=== PATIENT | female | born 1970 | race Caucasian/White ===

== ENCOUNTER 2023-02-19 07:08 | Inpatient (IN) | payer OTHER, SELFPAY ==
[2023-02-19] VITALS (16 sets, daily range): BP systolic 109–156; BP diastolic 62–88; PULSE 63–92; RESP 12–25; TEMP 36.4–37.4; O2SAT 93–100; BMI 33.9
--- NOTE | ~2023-02-19 | US_ITS ---
EXAMINATION: US abdomen limited DATE: 02/22/2023 13:31 INDICATION: Right upper quadrant pain TECHNIQUE: Multiple grayscale and Doppler ultrasound images of the abdomen were obtained. COMPARISON: CT from yesterday FINDINGS: Bowel gas obscures visualization of the pancreas. The visualized portions of the pancreas a re unremarkable. The liver is normal with normal echogenicity and echotexture. No surface nodularity. Normal hepatopetal flow in the main portal vein. The gallbladder is normal with no abnormal wall thi ckening, pericholecystic fluid or stones. The normal common bile duct measures 3 mm. There was no son ographic Ayala sign. IMPRESSION: 1. No sonographic correlate for the patient's symptoms. Reviewed, dictated and finalized at location A.
--- NOTE | ~2023-02-19 | CT_ITS ---
EXAMINATION: CT chest abdomen pelvis wo con DATE: 02/21/2023 16:33 INDICATION: Right flank pain. Right upper quadrant abdominal pain. Pleural effusion. TECHNIQUE: Computed tomography (CT) of the chest, abdomen, and pelvis was performed without intraveno us contrast. Automated exposure control and iterative reconstruction technique were employed. The dos e-length product was 1469.09 mGy-cm. COMPARISON: Chest CT 02/19/2023 FINDINGS: CHEST CT: There are small right and trace left pleural effusions. There is moderate atelectasis in right lung w ith an inferior predominance. There is mild atelectasis in left lung. Cardiomegaly is noted. No peric ardial effusion. There is mild thoracic spondylosis. ABDOMEN/PELVIS CT: There is a moderate-sized sliding hiatal hernia. The liver and spleen are normal. The gallbladder is distended. The pancreas, adrenal glands, and kidneys are normal. There is no urolithiasis. There are no dilated loops of bowel. The appendix is not visualized. There is acute hemoperitoneum in the expec anika area of right ovary and in the inferior peritoneum. There are no pathologically enlarged lymph no mile. There is mild lumbar spondylosis. IMPRESSION: 1. Acute hemoperitoneum in the expected area of right ovary and in the inferior peritoneum. 2. Small right and trace left pleural effusions. 3. Moderate-sized sliding hiatal hernia. 4. Gallbladder distention, which may be secondary to fasting. Consider abdomen ultrasound if there is clinical concern for acute cholecystitis. Reviewed, dictated and finalized at location E.
--- NOTE | ~2023-02-19 | CT_ITS ---
EXAMINATION: CTA chest PE protocol DATE: 02/19/2023 08:09 CDT INDICATION: Right-sided chest pain TECHNIQUE: Computed tomographic angiography (CTA) of the chest was performed with 100 mL Omnipaque-35 0 intravenous contrast. The dose-length product was 559.12 mGy-cm. Maximum intensity projection 3D-re constructions of the aorta and other arteries were constructed by the technologist on a separate work station. Automated exposure control and iterative reconstruction technique were employed. COMPARISON: None. FINDINGS: Small right pleural effusion. Study is technically adequate. There are filling defects in l eft lower lobe segmental and subsegmental pulmonary arteries, consistent with pulmonary embolism. No thoracic lymphadenopathy. Large hiatal hernia. There are bandlike areas of consolidation in the lower lobes and right upper lobe which may represent atelectasis and/or pneumonia. No acute osseous abnorm ality. IMPRESSION: 1. Pulmonary embolism of left lower lobe segmental and subsegmental pulmonary arteries, small thrombu s burden. 2: Small right pleural effusion. 3: Bandlike consolidation right upper and bilateral lower lobes which may represent atelectasis and/ or pneumonia. Reviewed, dictated and finalized at location D. IMPRESSION: 1. Pulmonary embolism of left lower lobe segmental and subsegmental pulmonary a rteries, small thrombus burden. 2: Small right pleural effusion. 3: Bandlike consolidation right upper and bilateral lower lobes which may repr esent atelectasis and/or pneumonia.
--- NOTE | ~2023-02-19 | US_ITS ---
EXAMINATION: US venous doppler [facility] DATE: 02/19/2023 15:13 INDICATION: Chest pain. Acute pulmonary emboli. TECHNIQUE: Grayscale ultrasound images without and with compression and Doppler ultrasound images of the bilateral lower extremity veins were obtained. COMPARISON: None. FINDINGS: The visualized portions of right common femoral vein, profunda (deep) femoral vein, femoral vein, pop liteal vein, peroneal veins, posterior tibial veins, and greater saphenous vein outflow are patent. The visualized portions of left common femoral vein, profunda femoral vein, femoral vein, popliteal v ein, peroneal veins, posterior tibial veins, and greater saphenous vein outflow are patent. IMPRESSION: 1. No deep venous thrombosis. Reviewed, dictated and finalized at location A.
--- NOTE | ~2023-02-19 | XR_ITS ---
EXAMINATION: XR chest 1V Exam Date/Time: 02/21/2023 16:25 CDT HISTORY: right flank pain, recent PE WITH SHORTNESS OF BREATH Comparison: CT chest abdomen and pelvis, same date. RESULT: Lines, tubes, and devices: None. Lungs and pleura: Patchy bilateral mid and lower lung opacities. Moderate right lateral costophrenic angle blunting. Cardiomediastinal silhouette: Large hiatal hernia, otherwise unremarkable. Other: No acute osseous or upper abdominal finding. IMPRESSION: Bilateral mid and lower lung subsegmental atelectasis/consolidation. Moderate right pleural effusion. Reviewed, dictated and finalized at location K. IMPRESSION: Bilateral mid and lower lung subsegmental atelectasis/consolidation. Moderate r ight pleural effusion.
--- NOTE | 2023-02-19 07:19 | ECG_ITS ---
Measurements Intervals [place] Rate: 98 P: 69 MO: 165 QRS: -1 QRSD: 81 T: 26 QT: 345 QTc: 441 Interpretive Statements SINUS RHYTHM BORDERLINE T WAVE ABNORMALITY- ANT/INF LEADS BASELINE ARTIFACT- I, II, III, AVR, AVL, AVF, V1-V6 BORDERLINE ECG NO PREVIOUS ECG AVAILABLE FOR COMPARISON Electronically Signed On 02-19-2023 7:45:28 CDT by Zhang Jacobo D.O.
[2023-02-19 07:34] LABS: Basophils Percent Auto 0.3 % (0.2-1.2); Eosinophils Absolute Auto 0.1 K/mm3 (0-0.3); Eosinophils Percent Auto 1.5 % (0-4.4); Hematocrit 32.1 % (37.0-47.0); Immature Granulocyte Absolute 0.04 K/mm3 (0.00-0.031); Immature Granulocyte Percent A 0.6 % (0-0.5); Lymphocytes Percent Auto 22.3 % (18.3-44.2); Mean Corpuscular HGB Conc 31.2 g/dl (32-36); Mean Corpuscular Hemoglobin 29.9 pg (26-34); Mean Corpuscular Volume 96.1 fl (80-100); Mean Platelet Volume 9.4 fl (7.4-10.4); Monocytes Absolute Auto 0.5 K/mm3 (0.1-0.6); Monocytes Percent Auto 7.2 % (2.6-8.5); Neutrophils Absolute Auto 4.9 K/mm3 (1.3-6.7); Neutrophils Percent Auto 68.1 % (45.5-73.1); Platelet Count Result 410 k/mm3 (150-375); Red Blood Count 3.34 M/mm3 (4.2-5.4); Red Cell Distribution Width 13.8 % (11.5-14.5); White Blood Count 7.2 K/mm3 (4.5-10.0)
[2023-02-19] MEDS: ASPIRIN 81 MG CHEWABLE TABLET 324 MG PO (07:37)
[2023-02-19 07:45] LABS: Alanine Aminotransferase 25 U/L (6-35); Albumin Level 4.6 g/dL (3.5-5.1); Alkaline Phosphatase 74 U/L (38-126); Anion Gap 5 mmol/L (8-16); Aspartate Amino Transferase 51 U/L (14-36); Bilirubin,Total 1.2 mg/dL (0.2-1.3); Blood Urea Nitrogen 13 mg/dL (7-17); Calcium 8.9 mg/dL (8.4-10.2); Carbon Dioxide 30 mmol/L (22-30); Chloride 101 mmol/L (98-107); Estimated CRCL calculation 106 ml/min; Estimated Glomerular Filt Rate > 60; Glucose 100 mg/dL (65-110); Lipase 134 U/L (23-300); Potassium 4.1 mmol/L (3.4-5.0); Sodium 136 mmol/L (137-145)
[2023-02-19] MEDS: MORPHINE SULFATE (*CRX) 4 MG/ML INJ IV PUSH (07:45)
[2023-02-19] MEDS: SODIUM CHLORIDE 0.9% IV 1,000 ML 999 ML IV CONT (07:46)
--- NOTE | 2023-02-19 07:47 | ED.CHESTPAIN ---
HPI - Chest Pain General Chief Complaint: Chest Pain Stated Complaint: Abd pain post hysterectomy Time Seen by Provider: 02/19/23 07:13 History of Present Illness HPI narrative: Patient is a 52-year-old female who presents ER with right-sided chest pain. Sharp. Worse with deep breath and physical movements. Also worse with palpation. Sudden onset at 6 AM. Patient is 1 week status post laparoscopic transvaginal hysterectomy. It was complicated by some internal bleeding where she was found to have fluid collection on CT scan, and she also had some pads filll up in the PACU. She received 2 units of blood.. It was performed in the [facility] system. Patient has no runny nose or sore throat or productive cough. Patient did have dry cough 2 days ago. No fevers or chills or sweats. No urinary symptoms. No history of PE. No hemoptysis. Related Data Home Medications Medication Instructions Recorded Confirmed acetaminophen 500 mg tablet 500 mg PO PRN PRN Pain (Scale 02/19/23 02/19/23 Score 1-3) cyclobenzaprine 10 mg tablet 10 mg PRN PRN Muscle Spasm 02/19/23 02/19/23 escitalopram oxalate 20 mg tablet 40 mg HS 02/19/23 02/19/23 oxycodone 5 mg tablet 5 mg PRN PRN Pain (Scale Score 4-6) 02/19/23 02/19/23 rizatriptan 10 mg disintegrating 10 mg PO PRN 02/19/23 02/19/23 tablet sennosides 8.6 mg tablet (senna) 8.6 mg BID 02/19/23 02/19/23 Allergies Allergy/AdvReac Type Severity Reaction Status Date / Time acetaminophen [From Vicodin] Allergy Unknown Verified 02/19/23 07:34 hydrocodone [From Vicodin] Allergy Unknown Verified 02/19/23 07:34 penicillin G Allergy Unknown Verified 02/19/23 07:34 topiramate [From Topamax] Allergy Unknown Verified 02/19/23 07:34 Review of Systems Review of Systems: All systems reviewed & are unremarkable except as noted in HPI and below Constitutional: Constitutional: Denies chills, Denies fatigue and Denies fever(s) ENT: Denies nasal congestion and Denies sore throat Cardiovascular: Cardiovascular: Reports chest pain, Denies rapid heart rate and Denies radiating jaw, neck or arm pain Respiratory: Respiratory: Denies cough, Denies dyspnea and Denies wheezing Gastrointestinal: Gastrointestinal: Denies abdominal pain, Denies diarrhea, Denies nausea and Denies vomiting Genitourinary: Genitourinary: Denies nocturia and Denies dysuria PMFSH Past Medical History Medical History (Updated 02/19/23 @ 14:00 by Filomena Restrepo PA-C) Depression Migraine headache Surgical History Surgical History (Updated 02/19/23 @ 14:00 by Filomena Restrepo PA-C) History of laparoscopy-assisted vaginal hysterectomy (02/13/23) Family History Family History Mother Cervical cancer Uterine cancer Grandparent Dementia Diabetes mellitus Father MVA (motor vehicle accident) Social History Social History (Updated 02/19/23 @ 13:57 by Filomena Restrepo PA-C) Social History: Surrogate medical decision maker: Addy Styles, spouse. Code status: Full code. Smoking status: Former smoker Substance use: current Substance use type: marijuana Lack of Transportation: No Lack of Food: Never True Current Housing: I Have Housing Concerned About Future Housing: No Difficulty Paying Gas/Electric Bills: No Difficulty Paying for Meds: No Currently Unemployed: No Education: Associate Degree Difficulty w/ Childcare or Family Care: No Additional living arrangements comments: Lives with spouse in [place]. Additional occupation/education comments: Disabled. Spiritual care concerns: No Exam Narrative: GENERAL: Uncomfortable-appearing, well-nourished, and in mild distress. HEAD: Normocephalic, atraumatic. ENT: Mucous membranes moist. CHEST: Clear to auscultation. No respiratory distress. Tender palpation right chest wall anterior inferior to the breast. HEART: Regular rate and rhythm. Normal peripheral pulses.
[2023-02-19 07:49] LABS: INR 0.9; Partial Thromboplastin Time 23.1 SECONDS (22.3-36.8); Prothrombin Time 12.7 Seconds (11.1-14.7)
[2023-02-19 07:56] LABS: Troponin I 0.025 ng/mL (0.000-0.034)
[2023-02-19 07:57] LABS: Estimated CRCL calculation 106 ml/min; Estimated Glomerular Filt Rate > 60
[2023-02-19] MEDS: HEPARIN SODIUM 5,000 UNITS/ML VIAL 6500 UNITS IV PUSH (09:22)
[2023-02-19] MEDS: HEPARIN SOD/D5W 100 UNITS/ML 25,000 UNITS/250 ML BAG 15 UNITS IV CONT (09:23)
--- NOTE | 2023-02-19 10:00 | ADMGEN ---
This patient, Micah Styles, was admitted to IMU Room 205-02 at 0944. Patient/family oriented to hospital policies and general routines including ID bracelet, bed and alarms, visiting hours, pain management, procedures, bathroom and other care routines, personal items, smoking policy, room service/diet, and visiting hours. Information on how to activate the Rapid Response Team has been discussed. Patient/Family are encouraged to report perceived risks to care and to ask questions if they do not understand what they are told or what they should do.
[2023-02-19 10:57] LABS: Troponin I 0.021 ng/mL (0.000-0.034)
--- NOTE | 2023-02-19 11:01 | PCCCNOTE ---
Addendum entered by Cynthia Branch RN 02/19/23 19:00: Called to after hours # [phone] [place] [phone], per rep there are no medical beds available. Original Note: Admitted to floor for Pulmonary Embolism, Spoke with ER hazard mitigation officer [facility] Called to [facility]rand at [phone], no medical bed available. Advised to call back after 5pm to the AOD at [phone] [place] [phone] to see if bed is available as they have not started their discharges yet.
[2023-02-19 13:29] LABS: Troponin I 0.016 ng/mL (0.000-0.034)
--- NOTE | 2023-02-19 13:44 | PM.IMHP ---
H&P: HPI History of Present Illness Date/Time: 02/19/23 13:00 Chief Complaint: Chest pain. Narrative: This is a 52-year-old female who presented to the ED from home for evaluation of chest pain. The patient provides the following history. She is 1 week status post laparoscopic vaginal hysterectomy performed at [facility]. While in PACU she had heavy vaginal bleeding and she reportedly soaked 3 pads in less than an hour. Per patient report, she began to have excruciating abdominal pain shortly thereafter and her blood pressure dropped. She was transfused 2 units of blood and was sent for a CT scan which reportedly showed a small amount of intra-abdominal bleeding which the surgeon did not feel was significant. She was monitored in the hospital for 2 days and was discharged this past Thursday. She has been doing well and she has not required significant amounts of pain medications. She has not had any vaginal bleeding either. In any event, yesterday evening she developed nondescript midback pain in this morning she was wakened from sleep at about 06:00 with sharp, stabbing pain on the right side of the chest and the right flank worse with movement and deep inspiration. She was also feeling a bit lightheaded short of breath with that. Chest CTA showed pulmonary embolism of the left lower lobe segmental and subsegmental pulmonary arteries, small right pleural effusion, and band like consolidation in the right upper and bilateral lower lobe which may represent atelectasis and/or pneumonia. She was started on a heparin drip and she has been admitted to the IMU in this setting. She has mild conversational dyspnea but does not appear to be in respiratory distress. She has not had fever, chills, or sweats. She denies cough. No nausea or vomiting. She has not noticed any swelling in her legs and denies calf pain. No personal or family history of venous thromboembolism. She has not had any recent travel. She is not on hormones. No history of malignancy. Review of Systems Review of Systems: Twelve systems were reviewed and are negative except for as per HPI. [facility]LY [facility] Past Medical History Medical History Depression Migraine headache Surgical History Surgical History (Updated 02/19/23 @ 21:51 by Filomena Restrepo PA-C) History of vaginal hysterectomy (02/13/23) Family History Family History Mother Cervical cancer Uterine cancer Grandparent Dementia Diabetes mellitus Father MVA (motor vehicle accident) Social History Social History Social History: Surrogate medical decision maker: Addy Styles, spouse. Code status: Full code. Smoking status: Former smoker Substance use: current Substance use type: marijuana Lack of Transportation: No Lack of Food: Never True Current Housing: I Have Housing Concerned About Future Housing: No Difficulty Paying Gas/Electric Bills: No Difficulty Paying for Meds: No Currently Unemployed: No Education: Associate Degree Difficulty w/ Childcare or Family Care: No Additional living arrangements comments: Lives with spouse in [place]. Additional occupation/education comments: Disabled. Spiritual care concerns: No Meds Home Medications and Allergies Home Medications Medication Instructions Recorded Confirmed Type acetaminophen 500 mg tablet 500 mg PO PRN PRN Pain (Scale 02/19/23 02/19/23 History Score 1-3) cyclobenzaprine 10 mg tablet 10 mg PRN PRN Muscle Spasm 02/19/23 02/19/23 History escitalopram oxalate 20 mg tablet 40 mg HS 02/19/23 02/19/23 History oxycodone 5 mg tablet 5 mg PRN PRN Pain (Scale Score 4-6) 02/19/23 02/19/23 History rizatriptan 10 mg disintegrating 10 mg PO PRN 02/19/23 02/19/23 History tablet sennosides 8.6 mg tablet (senna) 8.6 mg BID 02/19/23 02/19/23 History Azael
[2023-02-19] MEDS: MORPHINE SULFATE (*CRX) 4 MG/ML INJ 2 MG IV PUSH (13:49)
[2023-02-19 15:10] LABS: Hemoglobin 8.8 g/dL (12.0-15.0)
[2023-02-19 15:31] LABS: NT Pro B Type Natriuretic Pept 152 pg/mL (19.9-100)
[2023-02-19 16:21] LABS: Partial Thromboplastin Time 128.9 SECONDS (22.3-36.8)
[2023-02-19] MEDS: SENNOSIDES 8.6 MG TABLET BY MOUTH (16:28)
[2023-02-19] MEDS: oxyCODONE HCL (*CRX) 5 MG TAB IR BY MOUTH ×2 (16:28→19:04)
[2023-02-19] MEDS: ESCITALOPRAM OXALATE 10 MG TABLET 40 MG BY MOUTH (20:41)
[2023-02-19] MEDS: HYDROmorphone HCL INJ (*CRX) 1 MG/ML SYR 0.5 MG IV PUSH (20:42)
[2023-02-19 20:46] LABS: Hematocrit 27.8 % (37.0-47.0); Hemoglobin 8.9 g/dL (12.0-15.0)
[2023-02-20] VITALS (12 sets, daily range): BP systolic 93–122; BP diastolic 56–76; PULSE 65–83; RESP 14–20; TEMP 36.2–36.4; O2SAT 95–100
[2023-02-20 00:03] LABS: Partial Thromboplastin Time 66.7 SECONDS (22.3-36.8)
[2023-02-20] MEDS: HEPARIN SODIUM 5,000 UNITS/ML VIAL 3500 UNITS IV PUSH (00:42)
[2023-02-20] MEDS: HYDROmorphone HCL INJ (*CRX) 1 MG/ML SYR 0.5 MG IV PUSH ×5 (00:46→21:21)
[2023-02-20 01:57] LABS: Hematocrit 28.2 % (37.0-47.0); Hemoglobin 8.9 g/dL (12.0-15.0)
[2023-02-20] MEDS: HEPARIN SOD/D5W 100 UNITS/ML 25,000 UNITS/250 ML BAG 15 UNITS IV CONT (02:02)
[2023-02-20] MEDS: oxyCODONE HCL (*CRX) 5 MG TAB IR BY MOUTH ×3 (04:35→18:34)
[2023-02-20 06:45] LABS: Basophils Percent Auto 0.6 % (0.2-1.2); Eosinophils Absolute Auto 0.1 K/mm3 (0-0.3); Hematocrit 27.5 % (37.0-47.0); Hemoglobin 8.6 g/dL (12.0-15.0); Immature Granulocyte Absolute 0.09 K/mm3 (0.00-0.031); Immature Granulocyte Percent A 1.3 % (0-0.5); Lymphocytes Absolute Auto 1.81 K/mm3 (0.9-3.2); Lymphocytes Percent Auto 26.2 % (18.3-44.2); Mean Corpuscular HGB Conc 31.3 g/dl (32-36); Mean Corpuscular Hemoglobin 30.6 pg (26-34); Mean Corpuscular Volume 97.9 fl (80-100); Mean Platelet Volume 9.1 fl (7.4-10.4); Monocytes Absolute Auto 0.7 K/mm3 (0.1-0.6); Monocytes Percent Auto 10.3 % (2.6-8.5); Neutrophils Absolute Auto 4.1 K/mm3 (1.3-6.7); Neutrophils Percent Auto 59.6 % (45.5-73.1); Platelet Count Result 359 k/mm3 (150-375); Red Blood Count 2.81 M/mm3 (4.2-5.4); White Blood Count 6.9 K/mm3 (4.5-10.0)
[2023-02-20 06:57] LABS: Partial Thromboplastin Time 121.2 SECONDS (22.3-36.8)
[2023-02-20 07:00] LABS: Anion Gap 2 mmol/L (8-16); Blood Urea Nitrogen 15 mg/dL (7-17); Calcium 8.2 mg/dL (8.4-10.2); Carbon Dioxide 30 mmol/L (22-30); Chloride 103 mmol/L (98-107); Estimated CRCL calculation 103 ml/min; Estimated Glomerular Filt Rate > 60; Glucose 91 mg/dL (65-110); Magnesium 2.2 mg/dL (1.6-2.3); Potassium 3.9 mmol/L (3.4-5.0); Sodium 135 mmol/L (137-145)
--- NOTE | 2023-02-20 07:49 | PM.IMPN ---
Progress Note: A&P Assessment and Plan (1) Pulmonary embolism: Code(s): I26.99 - Other pulmonary embolism without acute cor pulmonale Status: Acute Assessment and Plan: Precipitating etiology may be recent surgery. She denies personal and family history of BT, recent travel, malignancy, and hormone use. She has been started on a heparin drip given reports of postoperative bleeding as per HPI. Venous Doppler ultrasounds of the lower legs ordered to rule out DVT. Encourage incentive spirometry given findings of atelectasis on imaging. (2) Normocytic anemia: Code(s): D64.9 - Anemia, unspecified Status: Acute Assessment and Plan: Monitor H&H q.6 hours for the 1st 24 hours on heparin drip. If there is a drop it may be appropriate to do a CT of the abdomen/pelvis given reports of intra-abdominal bleeding following hysterectomy, per patient report. (3) Depression: Code(s): F32.A - Depression, unspecified Status: Acute Assessment and Plan: Continue escitalopram. Plan DVT prophylaxis with SCDs GI prophylaxis not indicated Code status full code Subjective Date/time seen: 02/20/23 07:49 Interval history: No overnight events noted. No chest pain or shortness of breath. No nausea, vomiting or diarrhea. No fevers or chills. Review of Systems Review of Systems: 12 point review of systems was assessed and was negative except as noted in the HPI Exam Narrative: General: No acute distress, alert and oriented per baseline HEENT: Atraumatic, normocephalic, mucous membranes moist CV: Regular rate and rhythm, S1, S2 Lungs: Clear to auscultation bilaterally, no rales or crackles noted, no wheezes, good air entry Abdomen: Soft, nontender, nondistended Extremities: Normal to inspection Skin: No rashes noted, no lesions or wounds seen Psych: Euthymic, normal affect Objective Data Vital Signs Vital Signs: Vital Signs - 24 hr 02/19/23 08:32 02/19/23 08:32 02/19/23 08:46 Temperature 99.3 F Pulse Rate 75 73 67 Respiratory Rate 17 17 14 Blood Pressure 111/79 111/79 112/71 Pulse Oximetry 97 96 96 Oxygen Delivery Oxygen Flow Rate 02/19/23 09:01 02/19/23 09:16 02/19/23 10:00 Temperature 97.5 F L Pulse Rate 65 63 65 Respiratory Rate 12 14 20 Blood Pressure 115/68 118/62 156/88 H Pulse Oximetry 97 98 96 Oxygen Delivery Oxygen Flow Rate 02/19/23 12:00 02/19/23 12:00 02/19/23 12:00 Temperature 98.9 F Pulse Rate 72 76 Respiratory Rate 16 Blood Pressure 113/69 Pulse Oximetry 99 Oxygen Delivery Room Air Oxygen Flow Rate 02/19/23 14:00 02/19/23 16:00 02/19/23 16:00 Temperature Pulse Rate 64 69 Respiratory Rate Blood Pressure Pulse Oximetry Oxygen Delivery Room Air Oxygen Flow Rate 02/19/23 18:00 02/19/23 16:00 02/19/23 20:00 Temperature 98.0 F 98.2 F Pulse Rate 74 80 78 Respiratory Rate 20 16 Blood Pressure 123/86 116/70 Pulse Oximetry 100 98 Oxygen Delivery Oxygen Flow Rate 02/19/23 20:00 02/20/23 00:00 02/19/23 20:00 Temperature 97.2 F L Pulse Rate 72 73 Respiratory Rate 16 Blood Pressure 105/63 Pulse Oximetry 98 98 Oxygen Delivery Nasal Cannula Oxygen Flow Rate 2 02/20/23 00:00 02/20/23 00:00 02/19/23 22:00 Temperature Pulse Rate 68 78 Respiratory Rate Blood Pressure Pulse Oximetry 98 Oxygen Delivery Nasal Cannula Oxygen Flow Rate 2 02/20/23 02:00 02/20/23 04:00 02/20/23 04:00 Temperature 97.3 F L Pulse Rate 65 74 Respiratory Rate 16 Blood Pressure 93/72 L Pulse Oximetry 98 98 Oxygen Delivery Nasal Cannula Oxygen Flow Rate 2 02/20/23 04:00 02/20/23 06:00 02/19/23 10:26 Temperature 97.5 F L Pulse Rate 66 76 65 Respiratory Rate 20 Blood Pressure 156/88 H Pulse Oximetry 96 Oxygen Delivery Oxygen Flow Rate Intake/Output Intake/Output: Intake & Output 02/17
[2023-02-20] MEDS: SENNOSIDES 8.6 MG TABLET BY MOUTH ×2 (09:27→17:10)
[2023-02-20] MEDS: RIZATRIPTAN BENZOATE 10 MG TABLET PO (09:27)
--- NOTE | 2023-02-20 11:51 | PM.IMPN ---
Progress Note: A&P Assessment and Plan (1) Pulmonary embolism: Code(s): I26.99 - Other pulmonary embolism without acute cor pulmonale Status: Acute Assessment and Plan: heparin. (2) Normocytic anemia: Code(s): D64.9 - Anemia, unspecified Status: Acute (3) Depression: Code(s): F32.A - Depression, unspecified Status: Acute Subjective Date/time seen: 02/20/23 11:51 Interval history: no new complaints Exam Narrative: General: alert and oriented Psych: appropriate mood nad affect Eyes: PERRLA Neck: Trachea midline, no new lesions Skin: no changes Lungs: CTA Cardiac: Normal S1,S2, no MGR ABD: soft, nd, nt, nbs Ext: no new lesions, no cce Vasc: Pulses intact Objective Data Vital Signs Vital Signs: Vital Signs - 24 hr 02/19/23 12:00 02/19/23 12:00 02/19/23 12:00 Temperature 98.9 F Pulse Rate 72 76 Respiratory Rate 16 Blood Pressure 113/69 Pulse Oximetry 99 Oxygen Delivery Room Air Oxygen Flow Rate 02/19/23 14:00 02/19/23 16:00 02/19/23 16:00 Temperature Pulse Rate 64 69 Respiratory Rate Blood Pressure Pulse Oximetry Oxygen Delivery Room Air Oxygen Flow Rate 02/19/23 18:00 02/19/23 16:00 02/19/23 20:00 Temperature 98.0 F 98.2 F Pulse Rate 74 80 78 Respiratory Rate 20 16 Blood Pressure 123/86 116/70 Pulse Oximetry 100 98 Oxygen Delivery Oxygen Flow Rate 02/19/23 20:00 02/20/23 00:00 02/19/23 20:00 Temperature 97.2 F L Pulse Rate 72 73 Respiratory Rate 16 Blood Pressure 105/63 Pulse Oximetry 98 98 Oxygen Delivery Nasal Cannula Oxygen Flow Rate 2 02/20/23 00:00 02/20/23 00:00 02/19/23 22:00 Temperature Pulse Rate 68 78 Respiratory Rate Blood Pressure Pulse Oximetry 98 Oxygen Delivery Nasal Cannula Oxygen Flow Rate 2 02/20/23 02:00 02/20/23 04:00 02/20/23 04:00 Temperature 97.3 F L Pulse Rate 65 74 Respiratory Rate 16 Blood Pressure 93/72 L Pulse Oximetry 98 98 Oxygen Delivery Nasal Cannula Oxygen Flow Rate 2 02/20/23 04:00 02/20/23 06:00 02/20/23 08:00 Temperature 97.4 F L Pulse Rate 66 76 75 Respiratory Rate 14 Blood Pressure 122/69 Pulse Oximetry 95 Oxygen Delivery Oxygen Flow Rate 02/20/23 08:00 02/20/23 10:00 02/20/23 08:00 Temperature Pulse Rate 83 74 Respiratory Rate Blood Pressure Pulse Oximetry 95 Oxygen Delivery Nasal Cannula Oxygen Flow Rate 2 Intake/Output Intake/Output: Intake & Output 02/17/23 02/18/23 02/19/23 02/20/23 23:59 23:59 23:59 23:59 Intake Total 1730 1040 Output Total 900 700 Balance 830 340 Meds/Results Medications: Active Medications Generic Name Dose Route Start Last Admin Trade Name Freq PRN Reason Stop Dose Admin Acetaminophen 650 mg 02/19/23 09:04 Acetaminophen 325 Mg Tablet PO Q4H PRN Mild Pain (1-3) or Fever Escitalopram Oxalate 40 mg 02/19/23 21:00 02/19/23 20:41 Escitalopram Oxalate 10 Mg Tablet BY MOUTH 40 mg HS HALEY Administration Heparin Sodium (Porcine) 3,500 units 02/19/23 09:49 02/20/23 00:42 Heparin Sodium 5,000 Units/Ml Vial IV PUSH 3,500 units PRN PRN Administration aPTT 55 - 70 seconds Heparin Sodium (Porcine) 6,500 units 02/19/23 09:50 Heparin Sodium 5,000 Units/Ml Vial IV PUSH PRN PRN aPTT less than 55 seconds Hydromorphone HCl 0.5 mg 02/19/23 19:38 02/20/23 09:26 Hydromorphone Hcl Inj (*Crx) 1 Mg/Ml Syr IV PUSH 0.5 mg Q3H PRN Administration Pain Rated 7-10 Heparin Sodium/Dextrose 25,000 units in 250 mls @ 13 mls/hr 02/19/23 09:00 02/20/23 07:42 Heparin Sodium/D5w 100 Units/Ml IV CONT 1,300 units/hr .[id number] HALEY 13 mls/hr Titration Protocol 1,300 UNITS/HR Ondansetron HCl 4 mg 02/19/23 09:04 Ondansetron Inj 4 Mg/2 Ml Vial IV PUSH Q4H PRN Nausea Oxycodone HCl 5 mg 02/20/23 08:24 Oxyc
--- NOTE | 2023-02-20 13:59 | ECHO_ITS ---
Patient Info Name: Micah Styles Age: 52 years : 1970 Gender: Female Ht: 69 in Wt: 229 lbs BSA: 2.28 m2 HR: 76 bpm BP: 93 / 72 mmHg Heart Rhythm: Sinus Rhythm Technical Quality: Fair Exam Date: 02/20/2023 8:49 AM Exam Location: [facility] Card Pulmonary Patient Status: Inpatient Admit Date: 02/19/2023 Staff Ordering Physician: Filomena Restrepo PA-C [employer] Operator: Neeru Fierro RDCS Attending Provider: Lor Shaw DO Referring Physician: Ela Francois Exam Type: CA echo doppler color flow Study Info Indications - PE R07.9 - Chest pain, unspecified Complete two-dimensional, color flow and Doppler transthoracic echocardiogram is performed. Summary 1. Complete two-dimensional, color flow and Doppler transthoracic echocardiogram is performed. 2. Left ventricular chamber dimension is normal. 3. Left ventricular systolic function is normal, estimated at 60-65%. 4. The left ventricular diastolic function is grade I diastolic dysfunction. 5. E/e' 14 is mildly elevated. 6. There is trace tricuspid valve regurgitation. 7. No pulmonary hypertension, estimated pulmonary arterial systolic pressure is 25 mmHg. 8. There is trace pulmonic regurgitation. Left Ventricle E/e' 14 is mildly elevated. Left ventricular chamber dimension is normal. Left ventricular systolic function is normal, estimated at 60-65%. The left ventricular diastolic function is grade I diastolic dysfunction. Right Ventricle Right ventricular systolic function is normal and with normal TAPSE 2.0 cm. Right ventricular chamber dimension is normal. Left Atria Left atrial chamber dimension is normal. Right Atria Right atrial chamber dimension is normal. Aortic Valve The aortic valve is trileaflet. There is no aortic valve stenosis. There is no aortic valve regurgitation. Pulmonic Valve There is trace pulmonic regurgitation. Mitral Valve There is no mitral valve stenosis. There is no mitral valve regurgitation. Tricuspid Valve There is trace tricuspid valve regurgitation. No pulmonary hypertension, estimated pulmonary arterial systolic pressure is 25 mmHg. Pericardium/Pleural There is no pericardial effusion. Inferior Vena Cava Normal inferior vena cava with >50% collapse upon inspiration consistent with normal right atrial pressure, 5 mmHg. Aorta The aortic root size at the sinus of Valsalva is normal. Left Ventricular Outflow Tract Name Value Normal LVOT 2D LVOT Diameter 2.0 cm LVOT Doppler LVOT Peak Gradient 3 mmHg LVOT Mean Gradient 2 mmHg LVOT VTI 19 cm LVOT VTI/AV VTI Ratio 0.5 LVOT Stroke Volume 58 ml LVOT CO 3.9 l/min LVOT CI 1.7 l/min/m2 Pulmonic Valve Name Value Normal RVOT Doppler RVOT Peak Gradient 2 mmHg
--- NOTE | 2023-02-20 14:05 | PCCCNOTE ---
On 02/20/23, the student, [Inez Qiu], provided care and completed [facility] documentation on this patient. I have reviewed the student's documentation and agree with the findings.
[2023-02-20] MEDS: ESCITALOPRAM OXALATE 10 MG TABLET 40 MG BY MOUTH (20:06)
[2023-02-20] MEDS: CYCLOBENZAPRINE HCL 5 MG TABLET PO (20:06)
[2023-02-20 20:45] LABS: Partial Thromboplastin Time 54.4 SECONDS (22.3-36.8)
[2023-02-20] MEDS: HEPARIN SOD/D5W 100 UNITS/ML 25,000 UNITS/250 ML BAG 16 UNITS IV CONT (21:38)
[2023-02-20] MEDS: HEPARIN SODIUM 5,000 UNITS/ML VIAL 6500 UNITS IV PUSH (21:43)
[2023-02-20] MEDS: ACETAMINOPHEN 325 MG TABLET 650 MG PO (22:58)
[2023-02-21] VITALS (18 sets, daily range): BP systolic 102–140; BP diastolic 57–85; PULSE 78–114; RESP 16–20; TEMP 35.7–36.8; O2SAT 94–99
[2023-02-21] MEDS: HYDROmorphone HCL INJ (*CRX) 1 MG/ML SYR 0.5 MG IV PUSH ×6 (00:43→21:17)
[2023-02-21 04:43] LABS: Partial Thromboplastin Time 122.3 SECONDS (22.3-36.8)
[2023-02-21] MEDS: ACETAMINOPHEN 325 MG TABLET 650 MG PO (05:02)
[2023-02-21] MEDS: oxyCODONE HCL (*CRX) 5 MG TAB IR BY MOUTH ×3 (05:05→19:53)
[2023-02-21] MEDS: SENNOSIDES 8.6 MG TABLET BY MOUTH ×2 (08:10→18:06)
--- NOTE | 2023-02-21 10:31 | PM.IMPN ---
Progress Note: A&P Assessment and Plan (1) Pulmonary embolism: Code(s): I26.99 - Other pulmonary embolism without acute cor pulmonale Status: Acute Assessment and Plan: heparin. Transitioned to Eliquis. She is having some right flank and right upper quadrant pain. Will get chest x-ray and CT of the abdomen (2) Normocytic anemia: Code(s): D64.9 - Anemia, unspecified Status: Acute Assessment and Plan: monitor (3) Depression: Code(s): F32.A - Depression, unspecified Status: Acute Subjective Date/time seen: 02/21/23 10:31 Interval history: complaining of right flank and right abdominal pain. Exam Narrative: General: alert and oriented Psych: appropriate mood nad affect Eyes: PERRLA Neck: Trachea midline, no new lesions Skin: no changes Lungs: CTA Cardiac: Normal S1,S2, no MGR ABD: soft, nd, nt, nbs Ext: no new lesions, no cce Vasc: Pulses intact Objective Data Vital Signs Vital Signs: Vital Signs - 24 hr 02/20/23 12:00 02/20/23 12:00 02/20/23 12:00 Temperature 97.3 F L Pulse Rate 73 71 Respiratory Rate 14 Blood Pressure 95/56 L Pulse Oximetry 99 99 Oxygen Delivery Nasal Cannula Oxygen Flow Rate 2 02/20/23 14:00 02/20/23 16:00 02/20/23 16:00 Temperature 98 F 97.6 F Pulse Rate 66 77 76 Respiratory Rate 16 18 Blood Pressure 137/59 L 113/66 Pulse Oximetry 100 100 Oxygen Delivery Oxygen Flow Rate 02/20/23 16:00 02/20/23 16:00 02/20/23 18:00 Temperature Pulse Rate 79 72 Respiratory Rate Blood Pressure Pulse Oximetry 100 Oxygen Delivery Nasal Cannula Oxygen Flow Rate 2 02/20/23 20:00 02/20/23 20:00 02/20/23 22:00 Temperature 97.1 F L Pulse Rate 73 74 83 Respiratory Rate 20 Blood Pressure 120/76 Pulse Oximetry 97 Oxygen Delivery Oxygen Flow Rate 02/20/23 20:00 02/21/23 00:00 02/21/23 00:00 Temperature 97.4 F L Pulse Rate 84 78 Respiratory Rate 20 Blood Pressure 126/76 Pulse Oximetry 98 94 Oxygen Delivery Nasal Cannula Oxygen Flow Rate 2 02/21/23 00:00 02/21/23 02:00 02/21/23 04:00 Temperature Pulse Rate 94 102 H Respiratory Rate Blood Pressure Pulse Oximetry 99 Oxygen Delivery Nasal Cannula Oxygen Flow Rate 2 02/21/23 04:00 02/21/23 04:00 02/21/23 06:00 Temperature 97.4 F L Pulse Rate 102 H 98 Respiratory Rate 20 Blood Pressure 112/68 Pulse Oximetry 97 Oxygen Delivery Nasal Cannula Oxygen Flow Rate 2 02/21/23 08:22 02/21/23 08:51 02/21/23 09:10 Temperature 97.0 F L Pulse Rate 114 H Respiratory Rate 20 Blood Pressure 130/83 Pulse Oximetry 94 96 94 Oxygen Delivery High Flow Nasal Cannula High Flow Nasal Cannula Oxygen Flow Rate 4 2 02/21/23 08:00 02/21/23 08:00 02/21/23 10:00 Temperature Pulse Rate 114 H 93 Respiratory Rate Blood Pressure Pulse Oximetry 94 Oxygen Delivery High Flow Nasal Cannula Oxygen Flow Rate 2 Intake/Output Intake/Output: Intake & Output 02/18/23 02/19/23 02/20/23 02/21/23 23:59 23:59 23:59 23:59 Intake Total 1730 1530 550 Output Total 900 1500 200 Balance 830 30 350 Meds/Results Medications: Active Medications Generic Name Dose Route Start Last Admin Trade Name Bernardq PRN Reason Stop Dose Admin Acetaminophen 650 mg 02/19/23 09:04 02/21/23 05:02 Acetaminophen 325 Mg Tablet PO 650 mg Q4H PRN Administration Mild Pain (1-3) or Fever Escitalopram Oxalate 40 mg 02/19/23 21:00 02/20/23 20:06 Escitalopram Oxalate 10 Mg Tablet BY MOUTH 40 mg HS HALEY Administration Heparin Sodium (Porcine) 3,500 units 02/19/23 09:49 02/20/23 00:42 Heparin Sodium 5,000 Units/Ml Vial IV PUSH 3,500 units PRN PRN Administration aPTT 55 - 70 seconds Heparin Sodium (Porcine) 6,500 units 02/19/23 09:50 02/20/23 21:43 Heparin Sodium 5,000 Units/Ml Vial IV PUSH 6,500 units PRN PRN Adminis
[2023-02-21 10:43] LABS: Partial Thromboplastin Time 77.3 SECONDS (22.3-36.8)
[2023-02-21 11:01] LABS: Anion Gap 6 mmol/L (8-16); Blood Urea Nitrogen 14 mg/dL (7-17); Calcium 8.7 mg/dL (8.4-10.2); Carbon Dioxide 28 mmol/L (22-30); Chloride 100 mmol/L (98-107); Estimated CRCL calculation 103 ml/min; Estimated Glomerular Filt Rate > 60; Glucose 123 mg/dL (65-110); Sodium 134 mmol/L (137-145)
[2023-02-21 11:13] LABS: Basophils Absolute Auto 0.1 K/mm3 (0.0-0.1); Basophils Percent Auto 0.5 % (0.2-1.2); Eosinophils Absolute Auto 0.1 K/mm3 (0-0.3); Eosinophils Percent Auto 1.1 % (0-4.4); Hematocrit 30.5 % (37.0-47.0); Hemoglobin 9.4 g/dL (12.0-15.0); Immature Granulocyte Absolute 0.08 K/mm3 (0.00-0.031); Immature Granulocyte Percent A 0.8 % (0-0.5); Lymphocytes Absolute Auto 1.15 K/mm3 (0.9-3.2); Lymphocytes Percent Auto 11.8 % (18.3-44.2); Mean Corpuscular HGB Conc 30.8 g/dl (32-36); Mean Corpuscular Hemoglobin 30.5 pg (26-34); Mean Platelet Volume 10.1 fl (7.4-10.4); Monocytes Absolute Auto 0.8 K/mm3 (0.1-0.6); Monocytes Percent Auto 7.8 % (2.6-8.5); Neutrophils Absolute Auto 7.6 K/mm3 (1.3-6.7); Platelet Count Result 462 k/mm3 (150-375); Red Blood Count 3.08 M/mm3 (4.2-5.4); Red Cell Distribution Width 14.4 % (11.5-14.5); White Blood Count 9.8 K/mm3 (4.5-10.0)
[2023-02-21] MEDS: HEPARIN SOD/D5W 100 UNITS/ML 25,000 UNITS/250 ML BAG 14 UNITS IV CONT (14:56)
[2023-02-21 17:32] LABS: Partial Thromboplastin Time 67.3 SECONDS (22.3-36.8)
[2023-02-21] MEDS: HEPARIN SODIUM 5,000 UNITS/ML VIAL 3500 UNITS IV PUSH (18:06)
[2023-02-21] MEDS: CYCLOBENZAPRINE HCL 5 MG TABLET PO (19:53)
[2023-02-21] MEDS: ESCITALOPRAM OXALATE 10 MG TABLET 40 MG BY MOUTH (20:25)
[2023-02-22] VITALS (15 sets, daily range): BP systolic 104–133; BP diastolic 61–83; PULSE 78–108; RESP 16–24; TEMP 35.6–37.2; O2SAT 93–98
[2023-02-22] MEDS: HYDROmorphone HCL INJ (*CRX) 1 MG/ML SYR 0.5 MG IV PUSH ×7 (00:41→20:51)
[2023-02-22] MEDS: RIZATRIPTAN BENZOATE 10 MG TABLET PO (01:10)
[2023-02-22 01:12] LABS: Partial Thromboplastin Time 102.5 SECONDS (22.3-36.8)
[2023-02-22 07:59] LABS: Partial Thromboplastin Time 42.2 SECONDS (22.3-36.8)
[2023-02-22] MEDS: SENNOSIDES 8.6 MG TABLET BY MOUTH ×2 (09:14→16:10)
[2023-02-22] MEDS: HEPARIN SODIUM 5,000 UNITS/ML VIAL 3500 UNITS IV PUSH ×2 (09:50→15:46)
--- NOTE | 2023-02-22 11:27 | PM.IMPN ---
Progress Note: A&P Assessment and Plan (1) Pulmonary embolism: Code(s): I26.99 - Other pulmonary embolism without acute cor pulmonale Status: Acute Assessment and Plan: heparin. Transitioned to Eliquis. She is having some right flank and right upper quadrant pain. Will get chest x-ray and CT of the abdomen (2) Normocytic anemia: Code(s): D64.9 - Anemia, unspecified Status: Acute Assessment and Plan: monitor (3) Depression: Code(s): F32.A - Depression, unspecified Status: Acute (4) Abdominal pain: Code(s): R10.9 - Unspecified abdominal pain Status: Acute Assessment and Plan: CT scan noted. Pain is likely related from hemoperitoneum which is expected after her procedure. No active bleeding. For completeness will get ultrasound of the gallbladder. Subjective Date/time seen: 02/22/23 11:27 Interval history: no complaints Exam Narrative: General: alert and oriented Psych: appropriate mood nad affect Eyes: PERRLA Neck: Trachea midline, no new lesions Skin: no changes Lungs: CTA Cardiac: Normal S1,S2, no MGR ABD: soft, nd, nt, nbs Ext: no new lesions, no cce Vasc: Pulses intact Objective Data Vital Signs Vital Signs: Vital Signs - 24 hr 02/21/23 12:13 02/21/23 12:00 02/21/23 12:00 Temperature 97.4 F L Pulse Rate 98 108 H Respiratory Rate 20 Blood Pressure 127/79 Pulse Oximetry 96 95 Oxygen Delivery High Flow Nasal Cannula Oxygen Flow Rate 2 02/21/23 16:46 02/21/23 14:00 02/21/23 16:00 Temperature 96.2 F L Pulse Rate 93 94 97 Respiratory Rate 20 Blood Pressure 140/85 Pulse Oximetry 95 Oxygen Delivery Oxygen Flow Rate 02/21/23 16:00 02/21/23 18:00 02/21/23 20:00 Temperature 98.2 F Pulse Rate 87 102 H Respiratory Rate 18 Blood Pressure 121/75 Pulse Oximetry 95 96 Oxygen Delivery High Flow Nasal Cannula Oxygen Flow Rate 2 02/21/23 20:00 02/21/23 20:00 02/21/23 20:00 Temperature 98.3 F Pulse Rate 76 103 H Respiratory Rate 16 Blood Pressure 181/84 H Pulse Oximetry 98 97 Oxygen Delivery High Flow Nasal Cannula Oxygen Flow Rate 2 02/21/23 22:00 02/21/23 23:29 02/22/23 00:00 Temperature 98 F Pulse Rate 86 97 108 H Respiratory Rate 16 Blood Pressure 102/57 L Pulse Oximetry 97 Oxygen Delivery Oxygen Flow Rate 02/22/23 00:00 02/22/23 02:00 02/22/23 04:00 Temperature Pulse Rate 81 85 Respiratory Rate Blood Pressure Pulse Oximetry 96 Oxygen Delivery High Flow Nasal Cannula Oxygen Flow Rate 2 02/22/23 04:00 02/22/23 04:00 02/22/23 06:00 Temperature 98.1 F Pulse Rate 97 98 Respiratory Rate 18 Blood Pressure 133/66 Pulse Oximetry 97 97 Oxygen Delivery High Flow Nasal Cannula Oxygen Flow Rate 2 02/22/23 07:10 02/22/23 08:14 02/22/23 08:00 Temperature 97.2 F L Pulse Rate 89 95 90 Respiratory Rate 20 Blood Pressure 123/71 Pulse Oximetry 95 Oxygen Delivery Oxygen Flow Rate Intake/Output Intake/Output: Intake & Output 02/19/23 02/20/23 02/21/23 02/22/23 23:59 23:59 23:59 23:59 Intake Total 1730 1530 1220 240 Output Total 900 1500 550 300 Balance 830 30 670 -60 Meds/Results Medications: Active Medications Generic Name Dose Route Start Last Admin Trade Name Jacinto PRN Reason Stop Dose Admin Acetaminophen 650 mg 02/19/23 09:04 02/21/23 05:02 Acetaminophen 325 Mg Tablet PO 650 mg Q4H PRN Administration Mild Pain (1-3) or Fever Cyclobenzaprine HCl 5 mg 02/21/23 19:01 02/21/23 19:53 Cyclobenzaprine Hcl 5 Mg Tablet PO 5 mg Q12H PRN Administration Muscle Spasm Escitalopram Oxalate 40 mg 02/19/23 21:00 02/21/23 20:25 Escitalopram Oxalate 10 Mg Tablet BY MOUTH 40 mg HS HALEY Administration Heparin Sodium (Porcine) 3,500 units 02/19/23 09:49 02/22/23 09:50 Heparin Sodium 5,000 Units/Ml Vial IV PUSH 3,
[2023-02-22] MEDS: HEPARIN SOD/D5W 100 UNITS/ML 25,000 UNITS/250 ML BAG 18 UNITS IV CONT (11:41)
[2023-02-22] MEDS: CYCLOBENZAPRINE HCL 5 MG TABLET PO (15:20)
[2023-02-22 15:35] LABS: Partial Thromboplastin Time 66.5 SECONDS (22.3-36.8)
[2023-02-22] MEDS: ESCITALOPRAM OXALATE 10 MG TABLET 40 MG BY MOUTH (20:52)
[2023-02-22] MEDS: APIXABAN 5 MG TABLET 10 MG PO (20:52)
[2023-02-22] MEDS: oxyCODONE HCL (*CRX) 5 MG TAB IR BY MOUTH (21:55)
[2023-02-22] MEDS: ONDANSETRON INJ 4 MG/2 ML VIAL IV PUSH (23:15)
[2023-02-22] MEDS: ACETAMINOPHEN 325 MG TABLET 650 MG PO (23:15)
[2023-02-22 23:35] LABS: Partial Thromboplastin Time 175.6 SECONDS (22.3-36.8)
[2023-02-23] MEDS: HYDROmorphone HCL INJ (*CRX) 1 MG/ML SYR 0.5 MG IV PUSH ×4 (00:08→10:25)
[2023-02-23] MEDS: CYCLOBENZAPRINE HCL 5 MG TABLET PO (03:18)
[2023-02-23 05:46] LABS: Basophils Percent Auto 0.3 % (0.2-1.2); Eosinophils Absolute Auto 0.2 K/mm3 (0-0.3); Hematocrit 26.7 % (37.0-47.0); Hemoglobin 8.5 g/dL (12.0-15.0); Immature Granulocyte Absolute 0.06 K/mm3 (0.00-0.031); Immature Granulocyte Percent A 0.8 % (0-0.5); Lymphocytes Absolute Auto 1.15 K/mm3 (0.9-3.2); Lymphocytes Percent Auto 15.6 % (18.3-44.2); Mean Corpuscular HGB Conc 31.8 g/dl (32-36); Mean Corpuscular Hemoglobin 30.4 pg (26-34); Mean Corpuscular Volume 95.4 fl (80-100); Mean Platelet Volume 8.9 fl (7.4-10.4); Monocytes Absolute Auto 0.9 K/mm3 (0.1-0.6); Monocytes Percent Auto 12.5 % (2.6-8.5); Neutrophils Absolute Auto 5.1 K/mm3 (1.3-6.7); Neutrophils Percent Auto 68.8 % (45.5-73.1); Platelet Count Result 450 k/mm3 (150-375); White Blood Count 7.4 K/mm3 (4.5-10.0)
[2023-02-23 06:00] VITALS: BP 110/63; PULSE 89; RESP 18; TEMP 35.7; O2SAT 90
[2023-02-23] MEDS: oxyCODONE HCL (*CRX) 5 MG TAB IR BY MOUTH (08:57)
[2023-02-23] MEDS: APIXABAN 5 MG TABLET 10 MG PO (08:59)
[2023-02-23] MEDS: RIZATRIPTAN BENZOATE 10 MG TABLET PO (08:59)
[2023-02-23] MEDS: SENNOSIDES 8.6 MG TABLET BY MOUTH (09:00)
[2023-02-23 10:40] VITALS: PULSE 81; RESP 18; O2SAT 92
--- NOTE | 2023-02-23 10:53 | PM.DS ---
DS: Admitting Diagnosis Discharge Date February 23, 2023 Admitting Diagnosis PE DS: Discharge Diagnosis Discharge Diagnosis (1) Pulmonary embolism: Code(s): I26.99 - Other pulmonary embolism without acute cor pulmonale Status: Acute Assessment and Plan: heparin. Transitioned to Eliquis. She is having some right flank and right upper quadrant pain. Will get chest x-ray and CT of the abdomen (2) Normocytic anemia: Code(s): D64.9 - Anemia, unspecified Status: Acute Assessment and Plan: monitor (3) Depression: Code(s): F32.A - Depression, unspecified Status: Acute (4) Abdominal pain: Code(s): R10.9 - Unspecified abdominal pain Status: Acute Assessment and Plan: CT scan noted. Pain is likely related from hemoperitoneum which is expected after her procedure. No active bleeding. For completeness will get ultrasound of the gallbladder. DS: Summary Hospital Course Hospital Course: admitted for PE after a pelvic procedure. Patient had hysterectomy and had some minor postop complications with some bleeding. This had subsequently self-resolved. She was sent home then developed a small left-sided PE. Started on heparin and tolerated just fine. Transition to Eliquis. No active bleeding. Lab stable. She can be discharged home Time Spent with Patient Time attestation: Total time spent providing and/or coordinating discharge services: Exam Narrative: General: alert and oriented Psych: appropriate mood nad affect Eyes: PERRLA Neck: Trachea midline, no new lesions Skin: no changes Lungs: CTA Cardiac: Normal S1,S2, no MGR ABD: soft, nd, nt, nbs Ext: no new lesions, no cce Vasc: Pulses intact DS: Data Data Completed and Pending Labs on day of discharge: Labs from last 24 hours 02/23/23 02/22/23 02/22/23 05:28 22:17 15:16 WBC 7.4 RBC 2.80 L Hgb 8.5 L Hct 26.7 L MCV 95.4 MCH 30.4 MCHC 31.8 L RDW 14.0 Plt Count 450 H MPV 8.9 Immature Gran % (Auto) 0.8 H Neut % (Auto) 68.8 Lymph % (Auto) 15.6 L [place] % (Auto) 12.5 H Eos % (Auto) 2.0 Baso % (Auto) 0.3 Lymph # (Auto) 1.15 [place] # (Auto) 0.9 H Eos # (Auto) 0.2 Baso # (Auto) 0.0 Abs Immat Gran (auto) 0.06 H Absolute Neuts (auto) 5.1 Absolute Nucleated RBC 0.0 Nucleated RBC % 0.0 APTT 175.6 H* 66.5 H Discharge Plan Discharge Attending physician on discharge: Jaime Quinn Discharging Clinician: Jaime Quinn Patient Disposition: Home, Self-Care Activity: as tolerated Diet: as tolerated Patient Instructions: Antibiotic Form, Apixaban (By mouth) Stand Alone Forms: General Discharge Information Follow-up/Referrals: Tameka Christie [Other] Discharge Medications: New Eliquis DVT-PE Treat 30D Start 5 mg (74 tabs) tablets,dose pack See Rx Instructions .ROUTE .COMPLEX Qty: 74 0RF Rx Instructions: orally per package directions 10 mg bid x 7 days, then 5 mg bid Continued cyclobenzaprine 10 mg tablet 10 mg PRN PRN (Reason: Muscle Spasm) sennosides [senna] 8.6 mg tablet 8.6 mg BID acetaminophen 500 mg tablet 500 mg PO PRN PRN (Reason: Pain (Scale Score 1-3)) rizatriptan 10 mg tablet,disintegrating 10 mg PO PRN Rx Instructions: Can only take 2 in 24 hours escitalopram oxalate 20 mg tablet 40 mg HS oxycodone 5 mg tablet 5 mg PRN PRN (Reason: Pain (Scale Score 4-6)) Date of admission: 02/20/23 09:49 Primary Care Provider: Tameka Christie Admitting Provider: Lor Shaw Attending physician on admission: Lor Shaw Condition: Guarded Prognosis
== END 2023-02-23 12:10 | disposition home or self-care (01) | DRG 205 ==
LOC: ANHED 08:37 → ANHIMU 09:16 → ANH3MEDSUR 02-22 14:26
PROVIDERS: Physician Assistant; Admitting Provider Student in an Organized Health Care Education/Training Program; Emergency Provider Emergency Medicine; Visit Provider Chiropractor
DX: J95.89 Other postprocedural complications and disorders of respiratory system, not elsewhere classified (principal); I26.99 Other pulmonary embolism without acute cor pulmonale; K66.1 Hemoperitoneum; N99.820 Postprocedural hemorrhage of a genitourinary system organ or structure following a genitourinary system procedure; D62 Acute posthemorrhagic anemia; F32.A Depression, unspecified
CPT/HCPCS: 36415; 71045; 71250; 71275; 74176; 76705; 80048; 80053; 83690; 83735; 83880; 84484; 85014; 85018; 85025; 85610; 85730; 93005; 93306; 93970; 96361; 96365; 96374; 96375; 96376; 99285; A9270; G0378; J1170; J1644; J2270; J2405; J7030; Q9967